=== PATIENT | female | born 1980 ===

== ENCOUNTER 2025-06-10 19:45 | Emergency (ER) | payer OTHER ==
[~2025-06-10] VITALS: Ht 596.9 cm; Wt 79.4 kg
[2025-06-10 19:45] VITALS: BP 112/71
[2025-06-10] MEDS: ONDANSETRON 4 MG/2 ML VIAL IV ONE (23:15)
[2025-06-10] MEDS: KETOROLAC TROMETHAMINE 30 MG INJ IVP ONE (23:15)
[2025-06-10 23:23] LABS: PLATELET COUNT (AUTO) 209 K/uL (179-408); RED BLOOD CELL COUNT(AUTO) 4.82 MIL/uL (3.63-4.92); RED CELL DISTRIBUTION WIDTH 13.5 % (12.3-17.7); WHITE BLOOD COUNT (AUTO) 5.0 K/uL (3.8-11.8)
[2025-06-10] MEDS ORDERED: KETOROLAC TROMETHAMINE 30 MG INJ ONE (23:27)
[2025-06-10] MEDS ORDERED: ONDANSETRON 4 MG/2 ML VIAL ONE (23:27)
[2025-06-10 23:31] LABS: CREATININE 0.8 mg/dL (0.6-1.3); SODIUM SERUM 142.0 mmol/L (136-145); UREA NITROGEN, BLOOD 15.0 mg/dL (7-18)
[2025-06-10 23:36] LABS: ASPARTATE AMINOTRANSFERASE 12.0 U/L (15-37); TOTAL PROTEIN, SERUM 8.1 g/dL (6.4-8.2)
[2025-06-10] MEDS ORDERED: ONDANSETRON ODT 4 MG TAB.RAPDIS SL ONE (23:45)
[2025-06-10] MEDS: KETOROLAC TROMETHAMINE 30 MG INJ IM ONE (23:54)
[2025-06-10] MEDS: ONDANSETRON 4 MG/2 ML VIAL IM ONE (23:54)
[2025-06-11] MEDS ORDERED: GABA100C PO (00:38)
[2025-06-11 04:01] VITALS: BP 121/77; O2SAT 99
== END 2025-06-11 00:50 | disposition home or self-care (01) ==
LOC: ER 19:45
DX: R51.9 Headache, unspecified (principal); Z79.899 Other long term (current) drug therapy; Z90.711 Acquired absence of uterus with remaining cervical stump
CPT/HCPCS: 99285; 70450; 80053; 85025; 36415; 96372 ×2; J1885; J2405; A4606; A4663